=== PATIENT | female | born 1980 | race Caucasian/White ===

== ENCOUNTER 2016-09-20 01:02 | Emergency (ER) | payer SELFPAY ==
[~2016-09-20] VITALS: Ht 180.3 cm; Wt 65.0 kg
[2016-09-20 01:05] VITALS: BP 110/75; PULSE 98; RESP 16; TEMP 99; O2SAT 97
== END 2016-09-20 01:44 | disposition left against medical advice (07) ==
LOC: NED 01:02
DX: R10.9 Unspecified abdominal pain (principal)